=== PATIENT | male | born 1965 | race Caucasian/White ===

== ENCOUNTER 2018-12-16 07:17 | Day surgery (SDC) | payer SELFPAY ==
[~2018-12-16 07:17] MED LIST: ATROPINE SULFATE 1 MG/ML INJ ONE; BUPIVACA 0.5%/EPI 0.0005%/PF 10 ML VIAL ONE; FENTANYL CITR 100 MCG/2 ML ONE; LIDOCAINE 1% MPF 5 ML VIAL ONE; LIDOCAINE 2% MPF 5 ML VIAL ONE; MIDAZOLAM HCL 2 MG/2 ML INJ ONE; ONDANSETRON 4 MG/2 ML VIAL ONE; PROPOFOL 200 MG/20 ML VIAL IV ONE; ROCURONIUM 50 MG/5 ML VIAL IV ONE; SUCCINYLCHOLINE 20 MG/ML (10 ML) IV ONE; dexAMETHasone 10 MG/ML VIAL ONE
[2018-12-16] MEDS ORDERED: CEFAZOLIN/SWI 2gm 2 GM/20 ML SYR ONE (07:35)
[2018-12-16] MEDS ORDERED: Ringers Lactate 1,000 ML IV ONE (07:35)
[2018-12-16] MEDS ORDERED: KETOROLAC 30 MG/ML INJ ONE (08:53)
[2018-12-16] MEDS ORDERED: ONDANSETRON 4 MG/2 ML VIAL ONE (08:53)
[2018-12-16] MEDS ORDERED: PROPOFOL 200 MG/20 ML VIAL IV ONE (08:54)
[2018-12-16] MEDS ORDERED: FENTANYL CITR 100 MCG/2 ML ONE (09:06)
[2018-12-16] MEDS ORDERED: EPHEDRINE SULF 50 MG/ML VIAL ONE (09:19)
[2018-12-16] MEDS ORDERED: NS 0.9% VIAL 10 ML ONE (09:19)
[2018-12-16] MEDS ORDERED: BUPIVACA 0.5%/EPI 0.0005%/PF 10 ML VIAL ONE (09:29)
--- NOTE | 2018-12-16 09:43 | P.OP ---
Preoperative diagnosis: 2 Sebacous Cysts of Mid Back Postoperative diagnosis: 2 Sebacous Cysts of Mid Back Primary procedure: Wide Local Excision of 2 sebaceous cysts Anesthesia: GETA + Local Estimated blood loss: <10cc Specimen: #1 - Infected Sebaceous Cyst [id number], #2 - 2x2x2 cm sebacous cyst Findings: Infected Sebacous Cysts Complications: None Transferred to: Recovery Room Condition: Good
[2018-12-16] MEDS ORDERED: SUCCINYLCHOLINE 20 MG/ML (10 ML) IV ONE (09:59)
--- NOTE | 2018-12-16 20:57 | OP ---
Date of Procedure: 12/16/2018 Surgeon: Sylvester Ovalles MD, Preoperative Diagnosis: Two infected sebaceous cysts of the midback. Postoperative Diagnosis: Two infected sebaceous cysts of the midback. Procedure Performed: A wide local excision of 2 sebaceous cysts of the back with debridement of tiss ue. Anesthesia: General endotracheal plus local with 0.25% Marcaine and epinephrine. Estimated Blood Loss: 10 cc. Specimens: 1.Infected sebaceous cyst 8 x 8 x 4 cm. 2.Sebaceous cyst of the superolateral aspect of the back to the right of midline, 2 x 2 x 2 cm. 3.Cultures for aerobic and anaerobic speciation. Findings: Consistent with infected sebaceous cysts with pus. Complications: None. Disposition: Transferred to recovery room in good condition. Procedure In Detail: After informed consent was obtained, patient was brought to the operating room, prepped and draped in the usual sterile fashion. After adequate anesthesia was achieved, an area of around 8 cm x 8 cm cyst was taken down with a linear incision down through the subcutaneous tissues. I circumferentially dissected out a large infected sebaceous cyst with abscess. The cavity was ope aure and cultured at this time, and the capsule was taken out in its entirety with a rim of normal tis consuelo. Good hemostasis was achieved with electrocautery. There was minimal bleeding, but there was a single arterial bleeding vessel which required electrocautery control on the superior aspect of the w ound. The specimen was passed off for pathologic examination after being cultured. The area was telescope operator iously irrigated multiple times until completely dry and was left open at this point to inspect for a dditional hemostasis at this time. I then turned my attention to the 2 x 2 cm small sebaceous cyst on the superior aspect of the back, a pproximately 4 cm from the previous incision. I made an elliptical incision approximately 2 cm in si ze and circumferentially took down this sebaceous cyst until the cavity was removed in its entirety. Sebaceous material was emanating from this, and it was sent off for pathologic examination along wit h the cyst cavity. A rim of normal tissue was taken out. The area was copiously irrigated until com pletely dry. Hemostasis was easily achieved with electrocautery. The cavity was then packed with a half-inch plain packing, and a sterile dressing was placed over top. The 8 x 8 x 4 cm back lesion wa s then inspected for proper hemostasis at this time, which was achieved without any additional hemost atic maneuvers. As such, the superior and inferior aspects of the wound were reapproximated with int errupted 2-0 nylon sutures in a mattress type suture, leaving the midportion of the wound open for pa cking. The wound was then packed with damp-to-dry dressings, and a sterile pressure dressing was tadeo vinicio over top. Patient tolerated the procedure well without evidence of complication, transferred to PACU in good condition. All counts were correct at the end of the case. JAE/VIVIAN Voice ID: [id number] Report ID: [id number]
== END 2018-12-16 11:45 | disposition home or self-care (01) ==
LOC: OR 07:17
PROVIDERS: ATTEND Surgery
PROC: 0JB70ZX Excision of Back Subcutaneous Tissue and Fascia, Open Approach, Diagnostic (ICD-10-PCS; principal; 2018-12-16 08:30)
DX: L72.0 Epidermal cyst (principal); I10 Essential (primary) hypertension; Z79.899 Other long term (current) drug therapy
CPT/HCPCS: 87070; 87075; 87205; 88304; J0330; J0461; J0690; J1100; J2250; J2405; J2704; J3010